=== PATIENT | female | born 1950 | race Caucasian/White ===

== ENCOUNTER → 2019-06-12 | Outpatient (CLI) | payer MEDICARE, SELFPAY ==
[2019-06-12 10:53] VITALS: BMI 25.7
--- NOTE | 2019-06-12 11:02 | RAD_ITS ---
STUDY: X-RAY - RIGHT KNEE REASON FOR EXAM: Female, 69 years old. Pain TECHNIQUE: 4 view(s) of the knee. COMPARISON: None. FINDINGS: Normal visualized distal femur. Normal visualized proximal tibia and fibula. Normal proximal tibiofibular articulation. There is severe degenerative arthrosis of the medial femorotibial compartment with severe joint space narrowing. There is moderate degenerative arthrosis of the lateral femorotibial compartment with moderate joint space narrowing. There is severe degenerative arthrosis of the patellofemoral articulation. Patellar osteophytes. The soft tissue structures are unremarkable. RAD/Knee 4 or More Views IMPRESSION: Significant tricompartmental osteoarthritis. Electronically Signed: Hernán Smith MD at 21:46 EDT Tel , Service support ,
== END | disposition home or self-care (01) ==
LOC: HPRAD 10:59
PROVIDERS: Family Provider Internal Medicine; PCP Internal Medicine; Referring Provider Orthopaedic Surgery; Visit Provider Orthopaedic Surgery
DX: M25.561 Pain in right knee (principal)
CPT/HCPCS: 73564

== ENCOUNTER 2020-09-16 14:00 | Outpatient (RCR) | payer MEDICARE, SELFPAY ==
[2020-08-19 07:56] VITALS: BMI 25.7
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
--- NOTE | 2020-09-16 14:51 | HP.PTDCSUM_ITS ---
It has been my pleasure to treat BIA SPRAGUE referred by Dr. Dirk Adams DO, with the diagnosis of OA of right hip and knee, Lumbar DDD for a total of 9 visit(s). Discharge Date: Please see the following information for a summary of their discharge status. Subjective: Water and Land both helpful. Does feel comfortable and confidence with the exercises. 80% back to normal- wants to be able to sampler pickup the right leg more easily. She has not had the sharp pain for 4 days! R groin Pain Intensity (Out of 10): 2 R knee Pain Intensity (Out of 10): 0 % Improvement: 80 Objective/Function: Posture: FH, RS- can correct but does not maintain. Gait: decreased stance on the right LE- poor heel/toe pattern on right with mild hip drop. HR/TR: able with discomfort with both. SLS: 30 sec without LOB but does report discomfort. Stairs: asc/desc 8 recip with 1 HR Palpation: not tender to touch. ROM: Lumbar: WFL in all planes, Hip: flexion: 110 degrees, abd: 50 degrees, IR:neutral, Er: 40 degrees, extn: 15 degrees- all with discomfort at end range. Knee: 10-110 degrees, Ankle: WFL. Sensation: WNL. Strength: Core: fair, hip: 4+/5, Knee: 5/5 Ankle: 5/5. Flex: HS: no restricion noted Gastroc: mild. Special Test: Scour: positive, COLLETTE: positive Goal 1:: Patient will be I with HEP and progression Goal Progress: Goal Met Goal 2:: Patient will ambulate >300 feet with a normalized gait pattern Goal Progress: Progressing Goal 3:: Patient will asc/desc 8 recip with 1 HR and normalized pattern Goal Progress: Goal Met Goal 4:: Patient will report no pain for 1 week in her groin Goal Progress: Progressing Plan: Discharge to Indep Home Exercise Program If there are questions or concerns regarding this patient's physical therapy, please feel free to call me at [phone]. Thank you for the referral of this patient. Sincerely, Danielle Vo DPT
== END 2020-09-16 19:00 | disposition home or self-care (01) ==
LOC: PT 14:00
PROVIDERS: PCP Internal Medicine; Referring Provider Orthopaedic Surgery; Visit Provider Orthopaedic Surgery
DX: M16.11 Unilateral primary osteoarthritis, right hip (principal); M17.11 Unilateral primary osteoarthritis, right knee; M51.36 Other intervertebral disc degeneration, lumbar region
CPT/HCPCS: 97110; 97113; 97140; 97162; 97164

== ENCOUNTER 2021-01-09 13:28 | Outpatient (RCR) | payer MEDICARE, SELFPAY ==
[2020-08-19 07:56] VITALS: BMI 25.7
[2021-01-09] MEDS: COVID-19 VACC, MRNA(PFIZER)/PF 30 MCG/0.3 ML SYRINGE IM (18:19)
[2021-01-30] MEDS: COVID-19 VACC, MRNA(PFIZER)/PF 30 MCG/0.3 ML SYRINGE IM (17:55)
== END 2021-01-09 23:59 ==
LOC: IMMUN 13:28
PROVIDERS: PCP Internal Medicine; Visit Provider Family Medicine
DX: Z23 Encounter for immunization (principal)
CPT/HCPCS: 0001A; 0002A; 91300

== ENCOUNTER → 2021-04-09 06:34 | Outpatient (CLI) | payer MEDICARE, SELFPAY ==
[2020-08-19 07:56] VITALS: BMI 25.7
--- NOTE | 2021-04-09 06:36 | CT_ITS ---
STUDY: CT SCAN LOWER EXTREMITY RIGHT.[facility] protocol. REASON FOR EXAM: Female, 71 years old. TKA RADIATION DOSAGE (If Supplied By Facility): CTDIvol = ( 19.41 ) mGy, DLP = ( 988.26 ) mGycm. Individualized dose optimization techniques were used for this CT.? TECHNIQUE: Multiple axial tomographic images of the right hip, right knee and right ankle joints were obtained. Coronal and sagittal reconstruction was obtained as well. COMPARISON: None. FINDINGS: Moderate degree of the osteoarthritis of the right hip joint with posterior acetabular spur. There is also evidence of degenerative spur involving the posterior aspect of the femoral head. Smaller spur is seen along the anterior aspect of the femoral head. There is a marked degree of joint space narrowing with degenerative spur formation involving the medial compartment of the knee joint. Moderate degree of joint space narrowing of the lateral compartment of the knee joint with degenerative spur formation of the distal femur and proximal tibia. There is a marked degree of osteoarthritis of the patellofemoral joint with large degenerative spur formation of the superior aspect of the patella as well as the anterior aspect of the distal femoral condyle. Small joint effusion. 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 No significant abnormality is seen at the level of the ankle joint. CT/Extremity Lower without Contra IMPRESSION: Degenerative changes of the hip joint and knee joint as described. Electronically Signed: Chan Blue MD at 9:01 EDT , Service support ,
== END ==
PROVIDERS: PCP Internal Medicine; Referring Provider Orthopaedic Surgery; Visit Provider Orthopaedic Surgery
DX: M17.11 Unilateral primary osteoarthritis, right knee (principal)
CPT/HCPCS: 73700

== ENCOUNTER 2021-04-22 06:47 | Day surgery (SDC) | payer MEDICARE, SELFPAY ==
[2020-08-19 07:56] VITALS: BMI 25.7
[2021-04-14 09:38] LABS: Prothrombin Time (Protime)PT. 12.2 SECONDS (11.7-14.9)
[2021-04-14 09:39] LABS: Partial Thromboplast Time 27.9 Seconds (24.1-36.2)
[2021-04-14 10:12] LABS: Thyroid Stim Hormone (TSH) 8.38 uIU/mL (0.358-3.74)
[2021-04-15 07:16] LABS: Fructosamine 267 umol/L (0-285)
[2021-04-22] VITALS (8 sets, daily range): BP systolic 104–149; BP diastolic 65–92; PULSE 60–95; RESP 14–16; TEMP 36.2–37.1; O2SAT 99–100; BMI 26.9
--- NOTE | 2021-04-22 07:07 | HP.PCM_ITS ---
History and Physical Date of Admission: 04/22/21 Date of Service: 03/14/21 MR#:[id number]:[id number]: BIA SPRAGUE #:[id number]:[id number] Provider:Dr. Dirk Adams DOAge/Sex: 71/F Location:[facility]:Signed Intake Intake Visit Reasons: right knee pain, Right hip Allergies triamcinolone acetonide [From Kenalog] Allergy (Verified 03/14/21 09:29) Hives hydrocodone Adverse Reaction (Verified 03/14/21 09:29) Vomiting lansoprazole [From Prevacid] Adverse Reaction (Verified 03/14/21 09:29) Nausea/Vom/Diarrhea oxycodone HCl [From Percocet] Adverse Reaction (Verified 03/14/21 09:29) Nausea/Vom/Diarrhea Medications cholecalciferol (vitamin D3) 2,000 unit PO DAILY 06/19/14 [History Confirmed 03/14/21] loratadine 10 mg PO DAILY 06/19/14 [History Confirmed 03/14/21] multivitamin with folic acid 1 tab PO DAILY 06/19/14 [History Confirmed 03/14/21] triamterene-hydrochlorothiazid 1 tab PO DAILY 06/19/14 [History Confirmed 03/14/21] calcium carbonate 600 mg PO DAILY 03/30/17 [History Confirmed 03/14/21] omeprazole 20 mg capsule,delayed release 20 mg PO cap 03/13/20 [History Confirmed 03/14/21] amoxicillin 500 mg capsule 2,000 mg PO ONCE #4 cap 03/05/21 [Rx Confirmed 03/14/21] levothyroxine 125 mcg tablet 88 mcg PO DAILY tab 03/14/21 [History Confirmed 03/14/21] [facility] Medical History (Updated 03/14/21 @ 09:45 by Ariane Briceño) Chondromalacia patellae, right knee History of reactive airway disease Surgical History (Updated 03/14/21 @ 09:27 by Lyudmila Rg) H/O elbow surgery History of carpal tunnel surgery Social History (Updated 08/19/20 @ 10:[address] Dirk Adams DO) Smoking Status: Former smoker HPI Right hip Details: Parts of this documentation were recorded by a scribe, this documentation accurately reflects the service provided and the decisions made by me, Dr. Dirk Adams, 03/14/21 0804. BIA SPRAGUE is a 71 year old F here today for primary complaint of Rt. knee pain. Patient states that in the past she did not want to have a knee replacement as suggested d/t the Covid pandemic but would like to discuss this option today. Patient states that she has a general pain that is now only in the knee. She still feels unsteady with this knee. She has had a left total knee replacement and has done well with that in the past she has had an open right surgery to her knee for cartilage issues. Ortho Exam General General: Yes no acute distress Neurologic: Yes alert Psychologic: Yes reasonable and appropriate Right Knee Skin/Wound: No erythema, No ecchymosis and No swelling Homans Sign: No Knee ROM: No ROM-Extension -20 to 0 and No ROM-Flexion 0-140 Examination: Yes Med jt line tenderness and Yes Lat jt line tenderness Stability: NML: Anterior Drawer, NML: Posterior Drawer, NML: Valgus 0 and NML: Valgus 30 Apprehension with Lateral Translation: No Patella Grind: Yes KNEE: Palpable pedal pulses intact sensation light touch There is a curvilinear midline incision from previous surgery Supplemental Info 03/14/2021 x-ray right knee: Severely advanced tricompartmental arthrosis with varus deformity Coding Level of Care Code Off vis,est,level 3 Diagnoses History of knee surgery Z98.890 Assessment and Plan Assessment and Plan (1) History of knee surgery: Plan - Dr. Dirk Adams, DO: Obtained X-rays of patient's right knee. Personally reviewed X-rays. See chart for further details. Explained patient is completely bone on bone with her right knee. Reviewed x- rays of her left knee after her previous total knee replacement. Discussed and educated patient on the IOVERA treatment. Explained this would be beneficial for patient since she would like to avoid narcotics. Discussed patient taking tramadol post operatively. Discussed patient is a perfect surgical candidate for a total knee replacement. Educated and demonstrated on a knee model. Explained to patient, would use the same existing incision on her right knee. Patient voiced she prefers stitches vs nasreen. Risks, benefits and alternatives of surgery reviewed including but not limited to bleeding, infection, nerve, artery and/or tissue damage, fracture, VTE, mech anical feel of the knee, continued pain, stiffness and expected post-operative course. Post operatively, patient will perform physical therapy same day. Patient can stay overnight if needed. Patient may take Tylenol up until surgery for pain relief. Patient needs to d/c NSAIDs one week before surgery and two weeks post-op. Patient will be on a blood thinner for two weeks post-op. Patient will start with a walker post-op and may transition into /cane/crutches based on evaluation. All questions answered. Patient in agreement of plan. Follow up with IOVERA treatment or sooner if pain, swelling, numbness or associated symptoms, or concerns develop. She will have her dental cleaning this month and we will schedule surgery for April 22, 2021 03/14/21 1010<Electronically signed by Dirk Adams DO>Date Dirk Adams DO Cosigner Signature:Date (if applicable) CC: ~I have re-examined the patient. There are no clinical changes since date of exam
[2021-04-22] MEDS: Celecoxib 200 MG Capsule 400 MG PO (07:45)
[2021-04-22] MEDS: Lactated Ringers 1,000 ML 100 ML IV (07:47)
[2021-04-22] MEDS: Acetaminophen 500 MG Tablet 1000 MG PO (07:49)
[2021-04-22] MEDS: Scopolamine 1mg/72hr Patch 1 PATCH TD (07:49)
[2021-04-22] MEDS: Gabapentin 600 MG Tablet PO (07:49)
[2021-04-22 08:10] LABS: Bedside Glucose 92 mg/dL (70-110)
[2021-04-22] MEDS: Cefazolin 2 GM in 0.9% Normal Saline 100 ML IV (10:27)
[2021-04-22] MEDS: dexAMETHasone 10 MG/ML Vial IV (10:30)
--- NOTE | 2021-04-22 10:30 | KNEE_PTH ---
PATIENT: BIA SPRAGUE LOC: [facility] [place] U#:[id number] AGE/SX: 71/F ROOM: RE04/22/[address]: Dr. Dirk Adams DO : 1950 BED: DIS: 04/22/2021 SPEC #: [id number] RECD: 04/22/21 14:47 STATUS: DYLAN REQ #: [id number] SALVADOR: 04/22/21 10:[address]: Dirk Adams DEPT: SURGICAL PATHOLOGY RECD BY: Jennifer Phan ENTERED: 04/23/21 10:34 SP TYPE: TOTAL KNEE OTHR DR: Dr. Irena Juarez MD Tissues: Knee, NOS Procedures: Decalcification bone/plaque Surgery Specimen Level IV HEADER OPERATION: ERAS, total knee replacement robotic arm assist PRE-OP DIAGNOSIS: History of knee surgery Z98.890 TISSUE SUBMITTED: Bone and tissue right knee MICROSCOPIC DIAGNOSIS Bone and tissue, right knee, total knee replacement/resection: Pieces of bone with degenerative osteoarthritic changes. BERKLEY:ivan 04/28/2021 MICROSCOPIC DESCRIPTION Slides are reviewed. GROSS DESCRIPTION Received is one container designated bone and soft tissue right knee. The specimen consists of multiple fragments of panchal-yellow bone measuring in aggregate 10 x 9 x 3 cm. No soft tissue is identified. A number of bony fragments contain articular surfaces consistent with tibial plateau and femoral condyle and displaying prominent osteophyte formation, eburnation and bone erosion. Heliarc Welder sections are submitted in two cassettes after decalcification. / BERKLEY:ivan 04/23/21 TC:5 CPT: 27078, 67431
[2021-04-22] MEDS: Lactated Ringers 1,000 ML 125 ML IV (11:31)
[2021-04-22] MEDS: Bupivacaine Mpf 0.5% 30 ML VIAL (12:08)
[2021-04-22] MEDS: Betamethasone/Betamethasone 30 MG/5 ML Vial (12:08)
[2021-04-22] MEDS: Epinephrine (1 mg/ml) 1 MG/ML VIAL (12:08)
[2021-04-22] MEDS: Cefazolin 1 GM/50 ML BAG IV (12:34)
--- NOTE | 2021-04-22 12:38 | PCM.OPRPT ---
Report of Operation Description of Surgical Findings:: Preoperative diagnosis: Right knee DJD Postoperative diagnosis: Same Procedure: Right total knee arthroplasty CT guided Robotic Assisted Implant: Havelock triathlon press fit femoral component size3, press-fit tibial baseplate size 4, press fit asymmetric patella size 35, polyethylene X3 size 9 CS Anesthesia: Spinal with adductor canal block Tourniquet time: 34 minutes at 300 mmHg Complications: None Condition: Stable to PACU Estimated blood loss: 125 cc Indication for procedure: This is a 71-year-old female with long standing degenerative joint disease, varus deformity and flexion contracture of the knee who has failed conservative treatment and wished to proceed with elective total knee arthroplasty. Risk benefits and alternatives were reviewed including; risk of bleeding, infection, nerve artery and tissue damage, continued pain, postoperative stiffness, venous thromboembolism, need for postoperative rehabilitation, mechanical feel to the knee, and expected postoperative course. The operative CT and templating was performed with component sizing Procedure: The patient was met in the preoperative holding area. The operative extremity was identified by both patient and physician and was marked. Patient was met by anesthesia. An adductor canal block was placed by anesthesia postoperatively the patient was brought back to the operating room on a wheeled cart and transferred to the operating table in the supine position. Anesthesia was started. A well-padded tourniquet was placed on the operative extremity. The patient was prepped and draped in the usual sterile fashion. A timeout was called to ensure the proper patient procedure and extremity were being contemplated. An Esmarch was used to exsanguinate the extremity. The tourniquet was inflated. A 10 blade scalpel was used to make a midline incision down through the skin and subcutaneous tissue. Skin retractors placed. Bovie was used to perform meticulous hemostasis. full-thickness flaps were elevated medial and lateral along the joint capsule. A deep blade scalpel was used to perform a medial parapatellar arthrotomy. The knee was brought to full extension. A Bovie was used to release the soft tissues off the most proximal aspect of the medial tibial plateau, a three-quarter inch curved osteotome was also used for this process. The infrapatellar fat pad was excised. The superior fat pad was excised partially anteriorolateraly and portion the anterioromedial pad was elevated from the femur. At this point our intra-articular femoral array was placed of a 45 degree angle proximal and posterior to the medial epicondyle. Our tibial array was placed greater than 1 hands breath below the incision at a 20 degree angle stab incisions were used for this case were attached and checked with the robotic software. Tourniquet was let down. At this point registration wang were taken throughout the knee as well as checkpoints placed in the femur and tibia once the knee was registered then tensioned the medial and lateral ligaments in extension and 90 degrees of flexion. We then used these numbers to adjust our components within parameters to balance the knee in both flexion and extension once this was done on our monitor we then proceeded with using the robotic arm to make our tibial plateau cut and anterior posterior and chamfer cuts and distal on the femur we then trialed and achieved the desired plan with a well-balanced knee. Lug holes were drilled in the femur the tibia preparation was completed with a fin punch and the patella was prepared by first using a caliper to ensure sufficient bone stock and a patellar reamer to remove the desired amount of bone locals were drilled for an asymmetric poly-. We then brought the knee through range of motion with excellent patellar tracking. We thoroughly irrigated the knee with a trial components were removed a posterior capsular injection with her standard cocktail was performed the aqua Mantis was also used to aid in hemostasis. Betadine rinse was allowed to sit and washed out components were press-fit into place. Aricept rinse was then used followed by several more rate liters of irrigation after it was allowed to sit. Joint capsule was closed with #1 Ethibond [id number] followed by Vicryl in the subcutaneous tissues staple in the skin arrays and checkpoints were removed prior to closure all counts were correct stab incisions were closed with a stable standard dressing in the form of Mepilex for the main incision Xeroform 4 x 4 and Tegaderm over pin site holes. Thigh-high DEREEJ hose applied over top of dressing. Patient tolerated the procedure well and was directed to PACU in stable condition no intraoperative complications
--- NOTE | 2021-04-22 12:39 | DCINST_ITS ---
Discharge Instructions Diet Discharge Diet: No restrictions Activity Weight Bearing Status: Weight bearing as tolerated Keep extremity elevated above heart level: Operative Extremity Dressing / Incision Call your doctor if you observe: Shortness of breath and Chest pain Change Dressing in: 3 days Remove Dressing in: 3 days Additional Dressing/Incision Instructions:: Ice and elevate one week while not ambulating. Ambulation is encouraged. Weightbearing as tolerated. Use assistive devise for stability. Encourage FULL knee extension and flexion 1 time EVERY time you get up and down and MULTIPLE times per day. No showering 72 hours after surgery. Begin showering postop day #3. Remove the dressing prior to shower and gently wash with warm water and antibacterial soap then pat dry and place abdominal pad (or plain gauze) and DEREJE hose over top. This is to be done daily. Do not submerge for 3 weeks. If not showering daily after the initial 72 hours then you must clean incision and change dressing daily. Do not allow animals near the incision area. Keep clean. Follow anticoagulation recommendations as prescribed. Do not take any NSAIDs while on blood thinner. Do not take any additional narcotic pain medication other than what was prescribed on your surgery day without discussing with physician. Narcotic medi cation can be addictive. Do not drink alcohol while taking narcotics. Start physical therapy. If you are not currently scheduled for physical therapy or you are unsure of appointment time please call office [facility] to arrange. Call Dr. Adams with any concerns. Follow Up Care Please Follow Up With: Dirk Adams DO When: 2 weeks Test Results: Test results from this visit will be discussed in further detail at your follow-up appointment, if applicable. Discharge Plan Admission Attending Provider: Dirk Adams Primary Care Provider: Irena Juarez Discharge Orders/Prescriptions Prescriptions: New ondansetron HCl [Zofran] 4 MG tablet 4 mg PO Q6H PRN PRN (Reason: Nausea) 5 Days Qty: 15 RF: 0 cephalexin [cephalexin] 500 MG capsule 1,000 mg PO Q8 Qty: 4 RF: 0 Eliquis 2.5 MG tablet 2.5 mg PO BID Qty: 30 RF: 0 codeine sulfate 30 mg tablet 30 mg PO Q4H 7 Days Qty: 42 RF: 0 acetaminophen [acetaminophen] 500 MG tablet 1,000 mg PO Q6H PRN Qty: 100 RF: 0 No Action omeprazole 20 mg capsule,delayed release(DR/EC) 20 mg PO DAILY RF: 0 triamterene-hydrochlorothiazid 1 EACH tablet 1 tab PO DAILY RF: 0 loratadine 10 MG tablet 10 mg PO DAILY RF: 0 cholecalciferol (vitamin D3) 2,000 UNIT tablet 2,000 unit PO DAILY RF: 0 multivitamin with folic acid 1 TABLET tablet 1 tab PO DAILY RF: 0 levothyroxine 125 mcg tablet 88 mcg PO DAILY RF: 0 calcium carbonate 600 MG tablet 600 mg PO DAILY RF: 0 Elderberry Syrup 10 ml PO/SL DAILY RF: 0 Referrals / Follow Up: Irena Juarez MD [Primary Care Provider] - Disposition Discharge Orders: Discharge Patient (Routine); Ordered 04/22/21 Ordered By: Dr. Dirk Adams
--- NOTE | 2021-04-22 13:32 | RAD_ITS ---
STUDY: X-RAY - RIGHT KNEE REASON FOR EXAM: Postop right total knee arthroplasty. TECHNIQUE: 2 view(s) of the knee. COMPARISON: Radiographs 03/14/2021. FINDINGS: There is a right total knee arthroplasty without evidence of complication. There is postoperative gas in the soft tissues. RAD/Knee 1 or 2 Views IMPRESSION: Uncomplicated right total knee arthroplasty. Electronically Signed: Dale Martinez MD at 14:09 EDT Tel , Service support ,
[2021-04-22] MEDS: Acetaminophen 500 MG Tablet PO (16:01)
== END 2021-04-22 17:12 ==
LOC: SDC 06:47 → AC 06:48
PROVIDERS: Anesthesiology; PCP Internal Medicine; Referring Provider Orthopaedic Surgery; Visit Provider Orthopaedic Surgery
PROC: 0SRC0JZ Replacement of Right Knee Joint with Synthetic Substitute, Open Approach (ICD-10-PCS; CPT 27447; principal; 2021-04-22 10:00)
DX: M17.11 Unilateral primary osteoarthritis, right knee (principal); M19.90 Unspecified osteoarthritis, unspecified site; K21.9 Gastro-esophageal reflux disease without esophagitis; I10 Essential (primary) hypertension; E07.9 Disorder of thyroid, unspecified; Z79.899 Other long term (current) drug therapy; Z87.891 Personal history of nicotine dependence
CPT/HCPCS: 01402; 27447; 64447; S2900; 36415; 73560; 82962; 82985; 83735; 84443; 85610; 85730; 86850; 86900; 86901; 87081; 88305; 88311; 97162; C1776; J7120; J0702; J2405

== ENCOUNTER 2021-06-04 12:00 | Outpatient (RCR) | payer MEDICARE, SELFPAY ==
[2020-08-19 07:56] VITALS: BMI 25.7
[2021-04-22 07:28] VITALS: BMI 26.9
--- NOTE | 2021-04-24 10:59 | HP.PTEVAL_ITS ---
Patient's Visit Information BIA SPRAGUE is a 71 year old F referred to Physical Therapy by Dr. 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 Date of Evaluation: 04/24/21 Physical Therapist: Koko Che, PT, ATC - Visit Plan Frequency: 3x /Week Duration: 6 Weeks Plan: R knee PROM/Mobs, stretching and strengthening, balance and proprio, core stab ex's, nustep, and HEP - Subjective DOS: 04/22/21. Pt reports she was doing ok until today. Pt reports she is in a lot of pain and the swelling is worse today. Pt notes she had a L TKA six years ago. Pt reports she had surgery on Wednesday morning and has been at home since. Pt notes she was given a HEP to perform but notes she is too sore today to perform the exercises. Pt reports she only has numbness surrounding her incision. Pt notes sleep difficulty without the use of pain meds. Pt reports she is able to negotiate stairs at this time one step at a time. Pt reports she is taking pain meds a couple times a day. Pt reports she is icing her knee which takes care of most of the pain. 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 2/10 pain at rest, 9/10 pain at worst (sitting down after standing) - Pain R knee Pain Intensity (Out of 10): 2 Pain Intensity Range: 9 - Objective Neuro: B LE sensation is WNL to light touch. B achilles reflex= 2/3. Girth: At patella: L knee 38, R knee 44 cm. MMT: R knee ext= o, flex 4.7; L knee flex= 10.6, ext 16.7 #F. ROM: L knee 0-115, R knee 0-10-70. Tu.43 - Goals Goal 1:: Decrease R knee pain x 50% to aid with sleep Goal Time Frame: 4-6 Weeks Goal 2:: Increase R knee ROM x 40 degrees toa id with restoring a more normalized gait pattern Goal Time Frame: 4-6 Weeks Goal 3:: Increase R knee strength x 1 grade to aid with gardening requirements Goal Time Frame: 4-6 Weeks Goal 4:: I with HEP Goal Time Frame: 4-6 Weeks - Rehabilitation Potential Physical Therapy Diagnosis: Pt has R knee swelling, weakness, and limited ROM secondary to R TKA Rehabilitation Potential: Good - Anticipated Interventions Patient/Client Instruction: Educate patient on: Condition, Plan of Care For the Purpose of:: To improve self management Therapeutic Exercise to Include: Strength training, Endurance training, Balance training, Flexibilty training, Gait and locomotor training, Passive ROM, Active ROM, Dynamic Lumbar Stabilization For the Purpose of:: To decrease pain, To increase ROM, To improve muscle performance and motor function Cryotherapy (ice pack, ice massage): Yes For the Purpose of:: To decrease pain Thank you for the opportunity to evaluate your patient. For Medicare and Medicare HMO plans, please review the plan of care and approve it. It will need to be FAXED BACK to us at [phone] for Medicare purposes. For Medicare only, by signing this I certify the plan of care. Please let me know if there are questions or concerns regarding this plan of care. Physician Signature: Date:
--- NOTE | 2021-06-09 16:34 | HP.PT.NRP ---
BIA SPRAGUE was seen in my office for initial evaluation on 04/24/21. The following Plan of Care was established for this patient: Initial Frequency: 3x /Week Initial Duration: 6 Weeks Patient/Client Instruction: Educate patient on: Condition, Plan of Care For the Purpose of:: To improve self management Therapeutic Exercise to Include: Strength training, Endurance training, Balance training, Flexibilty training, Gait and locomotor training, Passive ROM, Active ROM, Dynamic Lumbar Stabilization For the Purpose of:: To decrease pain, To increase ROM, To improve muscle performance and motor function Cryotherapy (ice pack, ice massage): Yes For the Purpose of:: To decrease pain This patient was last seen in our office . Pertinent comments regarding their Physical therapy will appear below: Pt returned to [facility] on the date of 06/04/2021 to report that she did not need any further PT. Pt was discharged at that time. At this point I will be discontinuing this patient from physical therapy. I would be happy to see this patient again in the future if found appropriate by the physician. Thank you! Koko Che, PT, ATC Balance/Gait/Functional tests - Balance/Special Test Scores Lower Extremity Functional Score: 67
== END 2021-06-04 19:00 | disposition home or self-care (01) ==
LOC: PT 12:00
PROVIDERS: PCP Internal Medicine; Referring Provider Orthopaedic Surgery; Visit Provider Orthopaedic Surgery
DX: Z47.1 Aftercare following joint replacement surgery (principal); Z96.651 Presence of right artificial knee joint
CPT/HCPCS: 97110; 97140; 97161

== ENCOUNTER 2023-03-25 10:00 | Outpatient (RCR) | payer MEDICARE, SELFPAY ==
--- NOTE | 2023-01-21 12:19 | HP.PTEVAL_ITS ---
Patient's Visit Information BIA SPRAGUE is a 73 year old F referred to Physical Therapy by Dr. Lou Haddad DO with a diagnosis of Right RTC Repair 12/29/22. Date of Evaluation: 01/21/23 Physical Therapist: Danielle Vo DPT - Visit Plan Frequency: 2x /Week Duration: 4 Weeks Plan: RTC repair 02/09/23- PROM until February 09. HEP Given IE: Scapular retractions, shoulder rolls, pendulums, table walk aways, bicep AROM - Subjective Dec 29 Dr. Haddad did a right RTC repair-partially tore it 25 years ago and she finished ripping it through with wear and tear. She has been wearing a sling since surgery and will wear it for a total of 6 weeks. 3x a day she gets out of it and does pendulums. Right hand dominate. Fully I prior to surgery. She has help at home. Pain at its worst: 3/10 Agg: when she does something dumb. Eases: getting it out of the sling. She is not taking pain medication. Best: 0/10 Pain is located in anterior shoulder and down the triceps. Describes the pain as sharp then it dulls out but does not last long. She has always had N/T in her fingers- no changes. They do swell more than normal now. No blurred vision, dizziness, [place] or neck pain. Sleep: chair- keeps trying the couch. PMHx/Meds: no changes since saw ortho in April. - Objective Posture: FH, RS- sling on the right UE- reports compliance. Palpation: tender along anterior shoulder and bicipital groove. ROM: AROM: Cervical: WNL Elbow: lacks 10 degrees of full extension, Wrist/Hand: WFL, PROM: Shoulder: guarded- Flexion: 90 degrees, Abd: 40 degrees, IR: to belly ER: 10 degrees- did not push into pain. Strength: not tested - Balance/Special Test Scores Quick DASH Score: 40.9075 - Goals Goal 1:: Patient will be I with HEP and progression Goal Time Frame: 8-12 Weeks Goal 2:: Patient will demo full AROM as per protocol allows Goal Time Frame: 8-12 Weeks Goal 3:: Patient will maintain proper posture t.o tx session to demo increased scap s/s Goal Time Frame: 8-12 Weeks Goal 4:: Patient will report 80% improvement Goal Time Frame: 8-12 Weeks - Rehabilitation Potential Physical Therapy Diagnosis: Patient presents with hypomobility- she has decreased UE ROM and scapular strength/stabilization and muscular endurance s/p RTC repair. Rehabilitation Potential: Good - Anticipated Interventions Patient/Client Instruction: Educate patient on: Benefits of Fitness Program Therapeutic Exercise to Include: Strength training, Endurance training, Coordination, Agility training, Body mechanics, Postural training, Flexibilty training, Neuromotor development, Passive ROM, Active ROM, Scapular Strength/Stabilization For the Purpose of:: To improve muscle performance and motor function Manual Therapy Techniques to Include: Passive ROM, Soft tissue mobilization TENS: Yes Cryotherapy (ice pack, ice massage): Yes Thermo therapy (hot pack): Yes Ultrasound (thermal/non thermal): No Thank you for the opportunity to evaluate your patient. For Medicare and Medicare HMO plans, please review the plan of care and approve it. It will need to be FAXED BACK to us at [phone] for Medicare purposes. For Medicare only, by signing this I certify the plan of care. Please let me know if there are questions or concerns regarding this plan of c are. Physician Signature: Date:
--- NOTE | 2023-02-18 11:52 | HP.PTREVAL ---
Dr. Lou Haddad, DO, It has been my pleasure to treat BIA SPRAGUE over the last 9 visits for Right RTC Repair 12/29/22. Please see the progress note below for an update on the physical therapy plan of care! Subjective: Patient reports that she saw the PA and is doing great. Sleep is back to normal. Just no strength in the shoulder- no using the sling anymore. Is not driving due to the gear shift. Exercise is going well at home. Objective/Function: Posture: no sling Palpation: tender along anterior shoulder and bicipital groove. ROM: AROM: Cervical: WNL Elbow: WFL Wrist/Hand: WFL, PROM: Shoulder: 165 degrees, Abd: 150 degrees, IR: to belly ER: 60 degrees Strength: Isometric at neutral 4+/5 Plan Plan: 02/18/23: Continue 2x a week for 4 weeks with progression through protocol. IE:RTC repair 02/09/23- PROM until February 09 Balance/Gait/Functional tests - Balance/Special Test Scores Quick DASH Score: 56.8175 Goals Goal 1:: Patient will be I with HEP and progression Goal Time Frame: 8-12 Weeks Goal Progress: Progressing Goal 2:: Patient will demo full AROM as per protocol allows Goal Time Frame: 8-12 Weeks Goal Progress: Progressing Goal 3:: Patient will maintain proper posture t.o tx session to demo increased scap s/s Goal Time Frame: 8-12 Weeks Goal Progress: Progressing Goal 4:: Patient will report 80% improvement Goal Time Frame: 8-12 Weeks Goal Progress: Progressing Anticipated Interventions Patient/Client Instruction: Educate patient on: Benefits of Fitness Program Therapeutic Exercise to Include: Strength training, Endurance training, Coordination, Agility training, Body mechanics, Postural training, Flexibilty training, Neuromotor development, Passive ROM, Active ROM, Scapular Strength/Stabilization For the Purpose of:: To improve muscle performance and motor function Manual Therapy Techniques to Include: Passive ROM, Soft tissue mobilization TENS: Yes Cryotherapy (ice pack, ice massage): Yes Thermo therapy (hot pack): Yes Ultrasound (thermal/non thermal): No Please do not hesitate to contact me at [phone] by phone or if you have questions or concerns regarding this new plan of care! Sincerely, Danielle Vo DPT
--- NOTE | 2023-03-18 09:28 | HP.PTREVAL_ITS ---
Dr. Lou Haddad, DO, It has been my pleasure to treat BIA SPRAGUE over the last 17 visits for Right RTC Repair 12/29/22. Please see the progress note below for an update on the physical therapy plan of care! Subjective: Pt. reports doing well. She is to follow up with physician later this date. Pt. reports no pain. She is going to [place] in 2 weeks. Objective/Function: ROM: PROM: full ROM without increase in symptoms. AROM: flexion 170deg aberrant motion, abd 165deg aberrant motion, functional IR L3, fdunctional ER C5. MMT: R elbow 5/5 throughout; shoulder: flexion 4-/5, abd 4- /5; ER 4/5, IR 5/5, ext 5/5. Pt. has good ROM of her R shoulder, but as expected she is still very weak, especially with over head movements. She would benefit from PT to work on phase III strengthening once physician allows. Plan Plan: Pt. to follow up with physician today to determine readiness for phase III. Pt. is also going to [place] in 2 weeks. Plan to see her during this time then progress to HEP that she can complete while on her trip. Balance/Gait/Functional tests - Balance/Special Test Scores Quick DASH Score: 27.2725 Goals Goal 1:: Patient will be I with HEP and progression Goal Time Frame: 8-12 Weeks Goal Progress: Progressing Goal 2:: Patient will demo full AROM as per protocol allows Goal Time Frame: 8-12 Weeks Goal Progress: Progressing Goal 3:: Patient will maintain proper posture t.o tx session to demo increased scap s/s Goal Time Frame: 8-12 Weeks Goal Progress: Progressing Goal 4:: Patient will report 80% improvement Goal Time Frame: 8-12 Weeks Goal Progress: Progressing Anticipated Interventions Patient/Client Instruction: Educate patient on: Benefits of Fitness Program Therapeutic Exercise to Include: Strength training, Endurance training, Coordination, Agility training, Body mechanics, Postural training, Flexibilty training, Neuromotor development, Passive ROM, Active ROM, Scapular Strength/Stabilization For the Purpose of:: To improve muscle performance and motor function Manual Therapy Techniques to Include: Passive ROM, Soft tissue mobilization TENS: Yes Cryotherapy (ice pack, ice massage): Yes Thermo therapy (hot pack): Yes Ultrasound (thermal/non thermal): No Please do not hesitate to contact me at [phone] by phone or if you have questions or concerns regarding this new plan of care! Sincerely, SAMANTHA ObrienT
--- NOTE | 2023-05-24 13:06 | HP.PT.NRP ---
Patient Information Patient Information: BIA SPRAGUE was seen in my office for initial evaluation on 01/21/23. The following Plan of Care was established for this patient: POC Established Initial Frequency: 2x /Week Initial Duration: 4 Weeks Anticipated Interventions Patient/Client Instruction: Educate patient on: Benefits of Fitness Program Therapeutic Exercise to Include: Strength training, Endurance training, Coordination, Agility training, Body mechanics, Postural training, Flexibilty training, Neuromotor development, Passive ROM, Active ROM and Scapular Strength/Stabilization For the Purpose of:: To improve muscle performance and motor function Manual Therapy Techniques to Include: Passive ROM and Soft tissue mobilization TENS: Yes Cryotherapy (ice pack, ice massage): Yes Thermo therapy (hot pack): Yes Ultrasound (thermal/non thermal): No Last Seen Last Seen: This patient was last seen in our office . Pertinent comments regarding their Physical therapy will appear below: Patient to continue HEP- d/c from PT- follow up with MD as needed. At this point I will be discontinuing this patient from physical therapy. I would be happy to see this patient again in the future if found appropriate by the physician. Thank you! Danielle Vo, SAMANTHAT Balance/Gait/Functional tests Balance/Special Test Scores Quick DASH Score: 27.1829
== END 2023-03-25 19:00 | disposition home or self-care (01) ==
LOC: PT 10:00
PROVIDERS: PCP Internal Medicine; Referring Provider Orthopaedic Surgery; Visit Provider Orthopaedic Surgery
DX: M75.121 Complete rotator cuff tear or rupture of right shoulder, not specified as traumatic (principal); G89.29 Other chronic pain; M25.819 Other specified joint disorders, unspecified shoulder; M75.51 Bursitis of right shoulder; Z98.890 Other specified postprocedural states
CPT/HCPCS: 97110; 97140; 97162; 97164

== ENCOUNTER 2024-03-13 09:30 | Outpatient (RCR) | payer MEDICARE, SELFPAY ==
--- NOTE | 2024-02-25 09:21 | HP.PTEVAL_ITS ---
Patient's Visit Information Visit Information Visit Information: BIA SPRAGUE is a 74 year old F referred to Physical Therapy by Dr. Dirk Adams DO with a diagnosis of Piriformis syndrome. Date of Evaluation: 02/22/24 Physical Therapist: Santi Hewitt DPT Visit Plan Frequency: 2x /Week Duration: 6 Weeks Plan: 1) Piriformis and IT band stretching, light progressing as tolerated. 2) US to piriformis on L side, inhibition rolling to same region. 3) glute medius strengthening as tolerated. If US not helping okay to progress on. Subjective Subjective: Pt. is here today for her initial evaluation with diagnosis of L piriformis strain. Pt. reports no mech of injury, but might have been after doing a lot of raking. She reports increased pain with getting up and down and with prolonged sitting. Walking is better. Pt. denies N/T in either LE. She does have pain that she reports that she has been trying some stretching, but has not seemed to help her pain much. Pt. does have some that extends down her leg to proximal posterior thigh. Pt. did have xrays showing some osteopenia and mild OA of L hip. 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 She thinks raking might have started all of her symptoms. Pain L gluteal region: Pain Intensity (Out of 10): 3 Pain Intensity Range: 0 and 9 Objective Objective: POSTURE: Slight fwrd posture. Slight anterior pelvic tilt. No larger lateral shift noted. PALPATION: No tenderness in lumbar spine. Pt. has tenderness along L piriformis muscle belly. Pt. reports pain down her leg, but not tender to palpation. NEURO: Pt. has normal sensation and normal DTR of BLEs. ROM: LUMBAR SPINE: flexion min loss NE, ext min loss NE, rotation min loss NE bilat, SB min loss NE. L hip: flexion 110deg NE, abd 45deg NE, ext 20deg NE, ER 45deg mild increase NW, IR 30deg NE. MMT: RLE: 5/5 throughout; LLE; ankle 5/5; knee: ext 5/5, flexion 5/5; hip: flexion 5/5, abd 4/5 increase NW, ext 4/5 mild increase NW. Core strenth poor+. GAIT: Pt. has fairly normal gait pattern. No large abnormalities. STAIRS: mild increase NW during R stance phase of gait. Special Tests L/S Slump test left side: Negative L/S Slump test right side: Negative L/S Left Straight Leg Raise: Negative L/S Right Straight Leg Raise: Negative L Hip Scour: Negative L Hip COLLETTE - Intraarticular Pathology: Negative L Hip FADDIR - Labrum: Negative L Hip Brenda - IT Band: Positive Comment: Pt. did have some IT band tightness, but no pain with testing. Balance/Special Test Scores Lower Extremity Functional Score: 36 Goals Goal 1:: LTG: Pt. to be I with HEP. Goal Time Frame: 4-6 Weeks Goal 2:: STG: Pt. to be able to get up from seated position without increase in L hip pain. Goal Time Frame: 2-4 Weeks Goal 3:: LTG: Pt. to have symmetrical strength of B hips. 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 Goal Time Frame: 4-6 Weeks Goal 5:: LTG: Pt have a negative obers test. Goal Time Frame: 2-4 Weeks Goal 6:: LTG: pt. to have symmetrical hip ROM indicating reduced tightness in L hip. Goal Time Frame: 4-6 Weeks Rehabilitation Potential Physical Therapy Diagnosis: Pt. has signs and symptoms consistent with L piriformis syndrome. Pt. has marked posterior hip pain, consistent with palpation of piriformis. Negative testing for lumbar spine as well. Pt. has tightness and symptoms with L hip ER. Pt. 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 Rehabilitation Potential: Excellent Anticipated Interventions Patient/Client Instruction: Educate patient on: Condition, Plan of Care, Risk Factors and Benefits of Fitness Program For the Purpose of:: To foster healthy habits, To improve decision making, To facilitate caregiver knowledge, To improve self management, To prevent re-injury and To improve ability to perform tasks related to life management Therapeutic Exercise to Include: Strength training, Power training, Body mechanics, Flexibilty training and Passive ROM For the Purpose of:: To decrease pain, To decrease swelling/inflammation, To increase ROM, To improve nutrient delivery to tissue, To increase oxygenation perfusion, To improve muscle performance and motor function, To improve ability to perform ADL's, To increase tolerance to activity/condition/position, To improve performance and independence with ADL's, To decrease soft tissue restriction and To increase flexibility/ROM Manual Therapy Techniques to Include: Mobilization and Soft tissue mobilization For the Purpose of:: To decrease pain, To increase ROM, To improve nutrient delivery to tissue, To increase oxygenation perfusion and To improve muscle performance and motor function Ultrasound (thermal/non thermal): Yes For the Purpose of:: To decrease pain, To increase ROM, To improve nutrient delivery to tissue, To increase oxygenation perfusion, To decrease soft tissue restriction and To increase flexibility/ROM Text: Thank you for the opportunity to evaluate your patient. For Medicare and Medicare HMO plans, please review the plan of care and approve it. It will need to be FAXED BACK to us at [phone] for Medicare purposes. For Medicare only, by signing this I certify the plan of care. Please let me know if there are questions or concerns regarding this plan of care. Physician Signature: Date:
--- NOTE | 2024-03-13 10:27 | HP.PTREVAL_ITS ---
Re-Evaluation Intro: Dr. Dirk Adams, DO, It has been my pleasure to treat BIA SPRAGUE over the last 6 visits for Piriformis syndrome. Please see the progress note below for an update on the physical therapy plan of care! Subjective Subjective: Pt. reports symptoms are no better, actually in some cases a little bit more pain. Pt. reports my hamstrings on the right side are very sore. It feels deep. Pt. reports not much change her buttock or LE pain. Objective Objective/Function: Pt. continues to have increased pain down her LLE mostly in posterior/lateral leg. Pt. describes pain at deep and unable to get to. Pt. did have increased pain with nerve glides previously done. Pt. reports not having much relief with PT. Due to her limited progress and in some cases a little bit worse, I am recommending that she return to physician for further evaluation. She seems to have nerve symptoms in her leg that is very irritable. All strethcing seems to irritate her symptoms. Possible further evaluation warranted . Plan Plan Plan: Return to physician for further testing. Balance/Gait/Functional tests Balance/Special Test Scores Lower Extremity Functional Score: 36 Goals Goals Goal 1:: LTG: Pt. to be I with HEP. Goal Time Frame: 4-6 Weeks Goal Progress: Progressing Goal 2:: STG: Pt. to be able to get up from seated position without increase in L hip pain. Goal Time Frame: 2-4 Weeks Goal Progress: Progressing Goal 3:: LTG: Pt. to have symmetrical strength of B hips. 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 Goal Time Frame: 4-6 Weeks Goal Progress: Progressing Goal 5:: LTG: Pt have a negative obers test. Goal Time Frame: 2-4 Weeks Goal Progress: Progressing Goal 6:: LTG: pt. to have symmetrical hip ROM indicating reduced tightness in L hip. Goal Time Frame: 4-6 Weeks Goal Progress: Progressing Anticipated Interventions Anticipated Interventions Patient/Client Instruction: Educate patient on: Condition, Plan of Care, Risk Factors and Benefits of Fitness Program For the Purpose of:: To foster healthy habits, To improve decision making, To facilitate caregiver knowledge, To improve self management, To prevent re-injury and To improve ability to perform tasks related to life management Therapeutic Exercise to Include: Strength training, Power training, Body mechanics, Flexibilty training and Passive ROM For the Purpose of:: To decrease pain, To decrease swelling/inflammation, To increase ROM, To improve nutrient delivery to tissue, To increase oxygenation perfusion, To improve muscle performance and motor function, To improve ability to perform ADL's, To increase tolerance to activity/condition/position, To improve performance and independence with ADL's, To decrease soft tissue restriction and To increase flexibility/ROM Manual Therapy Techniques to Include: Mobilization and Soft tissue mobilization For the Purpose of:: To decrease pain, To increase ROM, To improve nutrient delivery to tissue, To increase oxygenation perfusion and To improve muscle performance and motor function Ultrasound (thermal/non thermal): Yes For the Purpose of:: To decrease pain, To increase ROM, To improve nutrient delivery to tissue, To increase oxygenation perfusion, To decrease soft tissue restriction and To increase flexibility/ROM Re-Evaluation Ending Re-evaluation ending: Please do not hesitate to contact me at [phone] by phone or if you have questions or concerns regarding this new plan of care! Sincerely, Santi Hewitt DPT
== END 2024-03-13 19:00 | disposition home or self-care (01) ==
LOC: PT 09:30
PROVIDERS: PCP Internal Medicine; Referring Provider Orthopaedic Surgery; Visit Provider Orthopaedic Surgery
DX: S76.312D Strain of muscle, fascia and tendon of the posterior muscle group at thigh level, left thigh, subsequent encounter (principal)
CPT/HCPCS: 97035; 97110; 97140; 97161; 97530

== ENCOUNTER → 2024-03-29 | Outpatient (CLI) | payer MEDICARE, SELFPAY ==
--- NOTE | 2024-03-29 06:24 | MRI_ITS ---
EXAM: MR LUMBAR SPINE WITHOUT INTRAVENOUS CONTRAST CLINICAL INDICATION: pain TECHNIQUE: Multiplanar and multisequence MR images of the lumbar spine without intravenous contrast. COMPARISON: No relevant prior studies available. FINDINGS: VERTEBRAE: Kyphosis of the thoracolumbar junction related to the L1 deformity. Lumbar lordosis otherwise maintained. Moderate chronic wedge compression deformity of the L1 vertebral body. Bony fusion of the anterior half of T12 and L1 vertebral bodies. Lumbar vertebral bodies are otherwise intact. No bone marrow edema. SPINAL CORD: Normal. Normal position and signal intensity of the conus medullaris. 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 SOFT TISSUES: Normal. DISCS/SPINAL CANAL/NEURAL FORAMINA: L1-L2: Mild disc space narrowing. No disc herniation. No significant narrowing of the spinal canal and neuroforamina. L2-L3: Mild disc space narrowing. Right posterior lateral disc protrusion causes narrowing of the right neural foramen. No significant compression of the spinal canal or left neural foramen. L3-L4: Moderate disc space narrowing. Mild broad-based disc protrusion, ligamentous hypertrophy and facet arthropathy results in severe right and moderate left neural foraminal narrowing and mild spinal stenosis. L4-L5: Mild disc space narrowing. Broad-based disc protrusion, ligamentous hypertrophy and facet arthropathy results in moderate spinal stenosis and moderate bilateral neural foraminal narrowing. L5-S1: Intact intervertebral disc. Mild left posterior lateral disc protrusion causes mild narrowing of the neural foramen. Normal caliber spinal canal and right neural foramen. Synovial cyst of the left facet joint measuring 1 cm diameter causes narrowing of the left lateral recess. MRI/Spine Lumbar (Routine) IMPRESSION: 1. Moderate spinal stenosis at L4-5 related to disc protrusion, ligamentous hypertrophy and facet arthropathy. 2. Multilevel neural foraminal stenoses as described above. 3. Narrowing of the left L5-S1 lateral recess related to adjacent synovial cyst of the facet joint. Electronically Signed: Juan Pablo Hernandez MD at 13:27 EDT ,
== END | disposition home or self-care (01) ==
LOC: MRI 06:20
PROVIDERS: PCP Internal Medicine; Referring Provider Orthopaedic Surgery; Visit Provider Orthopaedic Surgery
DX: M51.16 Intervertebral disc disorders with radiculopathy, lumbar region (principal)
CPT/HCPCS: 72148

== ENCOUNTER 2025-04-23 16:51 | Observation (INO) | payer MEDICARE, SELFPAY ==
[2025-04-23] VITALS (10 sets, daily range): BP systolic 128–155; BP diastolic 80–97; PULSE 62–88; RESP 12–22; TEMP 36.6–37.1; O2SAT 97–100; BMI 26.6; BMI 25.9
--- NOTE | 2025-04-23 16:57 | CT_ITS ---
PROCEDURE: STROKE BRAIN/HEAD WITHOUT CONT 04/23/2025 REASON FOR EXAM: NEURO DEFICIT, ACUTE, STROKE SUSPECTED TECHNIQUE: STROKE BRAIN/HEAD WITHOUT CONT Coronal and Sagittal reconstruction series were provided. One or more dose reduction techniques were used (e.g., Automated exposure control, adjustment of the mA and/or kV according to patient size, use of iterative reconstruction technique. RADIATION DOSE SUMMARY: CTDlvol: 44.99 mGy DLP: 779.24 mGycm COMPARISON: None. FINDINGS: Mild global parenchymal atrophy. Periventricular white matter hypodensity likely representing mild chronic microvascular ischemia. Right centrum semiovale slightly more pronounced hypodensity favored to represent additional chronic microvascular ischemia. CT/STROKE Brain/Head without Cont IMPRESSION: Slightly pronounced right centrum semiovale hypodensity favored to represent ch ronic microvascular ischemia. MRI is recommended to exclude acute infarction. No other acute intracranial abnormalities. Critical results were communicated to Dr. Price at 5:30 p.m.. Reading Location: [id number]
--- NOTE | 2025-04-23 16:57 | EKG12_ITS ---
Test Reason : STROKE TEAM Blood Pressure : */* mmHG Vent. Rate : 69 BPM Atrial Rate : 69 BPM P-R Int : 178 ms QRS Dur : 92 ms QT Int : 396 ms P-R-T Axes : -6 17 26 degrees QTcB Int : 424 ms Normal sinus rhythm Normal ECG Confirmed by RASHAUN STEVEN, RIGO ([id number]), publishing editor STEPHAN PHILLIPS ([id number]) on 04/24/2025 10:52:44 AM Referred By: Confirmed By: RIGO RODNEY MD
--- NOTE | 2025-04-23 16:57 | CT_ITS ---
PROCEDURE: STROKE CTA HEAD AND NECK W/CON 04/23/2025 REASON FOR EXAM: NEURO DEFICIT, ACUTE, STROKE SUSPECTED TECHNIQUE: STROKE CTA HEAD AND NECK W/CON Multiplanar Sagittal and Coronal images were obtained. CONTRAST: Isovue 370 VOLUME: 100 mL One or more dose reduction techniques were used (e.g., Automated exposure control, adjustment of the mA and/or kV according to patient size, use of iterative reconstruction technique). RADIATION DOSE SUMMARY: CTDlvol: 20.76+ 16.65 mGy DLP: 604.70 mGycm COMPARISON: None. FINDINGS: The aortic arch is patent. The common carotid arteries are patent without evidence of stenosis or injury. Atherosclerosis of the bilateral carotid bulb/proximal internal carotid arteries without hemodynamically significant stenosis. The cervical vertebral arteries are widely patent without evidence of stenosis or injury. Atherosclerosis of the carotid siphons without hemodynamically significant stenosis. The anterior cerebral, anterior communicating, middle cerebral, and posterior cerebral arteries are patent. No evidence of significant aneurysm. The [id number] is intact. The vertebrobasilar system is patent. The lung apices are clear. CT/STROKE CTA Head AND Neck W/Con IMPRESSION: No acute arterial abnormality of the head or neck. Reading Location: [id number]
[2025-04-23 17:11] LABS: Bedside Glucose 98 mg/dL (74-106)
[2025-04-23 17:15] LABS: Absolute Lymphocyte Count 3.28 X10^3/uL (0.83-4.51); Absolute Neutrophil Count 3.7 X10^3/uL (2.0-7.7); Basophil# 0.06 X10^3/uL; Basophil% 0.8 % (0-1); Eosinophil# 0.13 X10^3/uL; Eosinophils% 1.6 % (0-5); Hematocrit 35.3 % (37-47); Hemoglobin 12.5 g/dL (12.0-15.0); Lymphocyte # 3.28 X10^3/ul (0.83-4.51); Lymphocyte % 41.3 % (19-41); Mean Corp Hgb Conc 35.4 g/dL (32-36); Mean Corpuscular Hgb 33.2 pg (27.0-32.0); Mean Corpuscular Volume 93.9 fL (81-99); Mean Platelet Vol. 9.8 fl (6.2-12.0); Monocyte# 0.78 X10^3/uL; Monocyte% 9.8 % (0-10); NRBC Flagged by Analyzer 0 % (0-5); Neutrophil # 3.69 X10^3/uL (2.7-7.7); Neutrophil % 46.4 % (47-70); Platelet Count 267 K/mm3 (150-450); RBC Distribution Width CV 12.6 % (11.6-14.6); RBC Distribution Width SD 43.6 fl (35.1-43.9); Red Blood Count 3.76 M/mm3 (4.2-5.4)
--- NOTE | 2025-04-23 17:16 | ED.VIS.STROK ---
HPI History of Present Illness Chief Complaint: Stroke Alert Informant: patient [facility] Medical History Loss of hearing Wears glasses Alcohol use Thyroid disease Arthritis Injury of back Injury of head and neck Gastric reflux RAD (reactive airway disease) Former smoker Leg cramps History of pain when walking History of stress test Hypertension History of Mohs micrographic surgery for skin cancer Hx of retained foreign body fully removed History of reactive airway disease Chondromalacia patellae, right knee Home Medications ?Medication ?Instructions ?Recorded ?Last Taken ?Type cholecalciferol (vitamin D3) 50 2,000 unit PO DAILY 06/19/14 Unknown History mcg (2,000 unit) tablet loratadine 10 mg tablet 10 mg PO DAILY 06/19/14 Unknown History multivitamin with folic acid 400 1 tab PO DAILY 06/19/14 Unknown History mcg tablet triamterene 37.5 1 tab PO DAILY 06/19/14 Unknown History mg-hydrochlorothiazide 25 mg tablet calcium carbonate 600 mg PO DAILY 03/30/17 Unknown History omeprazole 20 mg capsule,delayed 20 mg PO DAILY 03/13/20 04/22/21 03:00 History release 20 MG Elderberry Syrup 10 ml PO/SL DAILY 04/08/21 Unknown History ibuprofen 200 mg tablet (Advil) 200 mg PO Q6H PRN 06/04/21 Unknown History levothyroxine 112 mcg tablet 112 mcg PO QDAY 02/02/24 Unknown History (Synthroid) amlodipine 2.5 mg tablet 2.5 mg PO QDAY 03/15/24 Unknown History diazepam 2 mg tablet (Valium) 4 mg (2 x 2 mg) PO QHS PRN anxiety 03/15/24 Unknown Rx #2 tabs celecoxib 200 mg capsule 200 mg PO DAILY 04/23/25 Unknown History Allergy/AdvReac Type Severity Reaction Status Date / Time triamcinolone acetonide Allergy Hives Verified 04/23/25 17:06 (From Kenalog) hydrocodone AdvReac Vomiting Verified 04/23/25 17:06 lansoprazole (From Prevacid) AdvReac Nausea/Vom/ Verified 04/23/25 17:06 Diarrhea oxycodone HCl (From Percocet) AdvReac Nausea/Vom/ Verified 04/23/25 17:06 Diarrhea Surgical History H/O rotator cuff surgery History of esophagogastroduodenoscopy (EGD) Hx of colonoscopy Hx of arthroscopy of right knee Hx of total knee arthroplasty Hx of arthroscopy of left knee Hx of dilation and curettage History of carpal tunnel surgery of left wrist H/O elbow surgery History of carpal tunnel surgery Social History Smoking Status: Former smoker EXAM Physical Exam Const Vital Signs: 04/23/25 16:57 04/23/25 17:03 04/23/25 17:11 Temperature 98 F Temperature Source Oral Pulse Rate 82 87 Respiratory Rate 16 22 H Blood Pressure 149/82 H 149/82 H Blood Pressure Mean 104 104 Pulse Ox 99 99 Oxygen Delivery Method Room Air Room Air Room Air MDM MDM MDM Narrative Medical decision making narrative: Differential diagnosis includes stroke, TIA, electrolyte abnormality, pneumonia, bronchitis, cardiac dysrhythmia, cardiac ischemia, paresthesias, and anxiety. Stroke alert was called from triage. Stroke alert order set was used. CT scan of the brain will be obtained to assess for intracranial bleeding and stroke. CTA of the head and neck will be obtained to assess for large vessel occlusion and carotid stenosis. Chest x-ray will be obtained to assess for pneumonia or bronchitis. EKG will be obtained to assess for cardiac dysrhythmia and cardiac ischemia. CBC will be obtained to assess for leukocytosis and anemia. Basic metabolic profile will be obtained to assess for electrolyte abnormality and renal function. PT with INR and PTT will be obtained to assess for coagulopathy. High-sensitivity troponin will be obtained to assess for cardiac ischemia. 2-hour repeat high-sensitivity troponin will be obtained to assess for ongoing cardiac ischemia. Lab Data Labs: Laboratory Results - last 24 hr 04/23/25 16:53 POC Glucose 98 Radiography Chest X-Ray - ED: 1 View, Read by ED Physician, Read by Radiologist and No Acute Disease Diagnostic Testing: Portable 1 view chest x-ray was obtained. On my independent interpretation, lung easley are clear. There is normal cardiac silhouette. Bony thorax is normal. There is no acute process noted. Radiologist also interpreted the x-ray and agrees. EKG Initial EKG: Attestation: I personally reviewed and interpreted this EKG as follows: Interpretation: Sinus Rhythm (69) and No Acute Injury Pattern Comments: EKG was obtained. On my independent interpretation, it showed a normal sinus rhythm with a rate of 69. AR interval, QRS interval, and QTc intervals were all normal. [place] was normal. There are no acute ST or T wave changes. Prior EKG tracings: available for review Prior: Unchanged (06/11/2015) Management Discussion w/another healthcare provider: Hospitalist, [employer] Inspector and Radiologist Treatment and Re-Evaluation Narrative: Patient was evaluated by stroke neurologist. He recommended starting the patient on Plavix and a statin. This was ordered. Case will be discussed with the hospitalist for admission. Discharge Plan Triage Chief Complaint: Stroke Alert ED Provider: Antony Francisco Dx/Rx/DC Orders Clinical Impression: TIA (transient ischemic attack), Arm paresthesia, left, Left leg paresthesias Prescriptions: No Action omeprazole 20 mg capsule,delayed release(DR/EC) 20 mg PO DAILY ibuprofen [Advil] 200 mg tablet 200 mg PO Q6H PRN levothyroxine [Synthroid] 112 mcg tablet 112 mcg PO QDAY amlodipine 2.5 mg tablet 2.5 mg PO QDAY diazepam [Valium] 2 mg tablet 4 mg PO QHS PRN (Reason: anxiety) Qty: 2 0RF Rx Instructions: Take 2 tabs 30 minutes prior to MRI for anxiety and claustrophobia meloxicam 15 mg tablet 15 mg PO DAILY Qty: 30 0RF Rx Instructions: Do not take in conjunction with ibuprofen or other NSAID. Tylenol is okay. Further refills from PCP. triamterene-hydrochlorothiazid 1 EACH tablet 1 tab PO DAILY Patient Comments: blood pressure loratadine 10 MG tablet 10 mg PO DAILY Patient Comments: allergies cholecalciferol (vitamin D3) 2,000 UNIT tablet 2,000 unit PO DAILY Patient Comments: supplement multivitamin with folic acid 1 TABLET tablet 1 tab PO DAILY Patient Comments: supplement levothyroxine 125 mcg tablet 112 mcg PO DAILY Patient Comments: thyroid, doesn't take on Wednesday calcium carbonate 600 MG tablet 600 mg PO DAILY Elderberry Syrup 10 ml PO/SL DAILY Primary Care Provider: Irena Juarez Referrals: Irena Juarez MD [Primary Care Provider] - Print Language: Urdu Disposition Disposition: Acute Care Hospital [facility]
--- NOTE | 2025-04-23 17:28 | RAD_ITS ---
PROCEDURE: CHEST 1 VIEW 04/23/2025 REASON FOR EXAM: NEURO DEFICIT, ACUTE, STROKE SUSPECTED TECHNIQUE: Frontal view of the chest. COMPARISON: None FINDINGS: No focal consolidations. Bibasilar subsegmental atelectasis. No pleural effusion or pneumothorax. Cardiac silhouette is within normal limits. No acute fractures. RAD/Chest 1 View IMPRESSION: No focal consolidations. Reading Location: [id number]
[2025-04-23 17:30] LABS: Prothrombin Time (Protime)PT. 12.9 SECONDS (11.7-14.9)
[2025-04-23 17:31] LABS: Anion Gap 14 (5-15); BUN 21 mg/dL (4-19); BUN/Creat Ratio 27.5 RATIO (10-20); Calcium,Total 9.6 mg/dL (7.6-11.0); Carbon Dioxide 24.5 mmol/L (21.0-32.0); Chloride 97 mmol/L (98-108); Creatinine, Serum 0.77 mg/dL (0.70-1.20); EST Glomerular Filtration Rate 80 (>60); Estimated Creatinine Clearance 59.73 ml/min (50-250); Glucose 94 mg/dL (70-99); Partial Thromboplast Time 26.6 Seconds (24.1-36.2); Potassium 3.4 mmol/L (3.3-5.1); Sodium Level 135 mmol/L (133-145); Troponin T High Sensitivity 8 ng/L (<=14)
--- NOTE | 2025-04-23 18:22 | PCM.HP.STD ---
HPI - General General Date of Admission: 04/23/25 Date of Service: 04/23/25 Chief Complaint: Strokelike symptoms HPI Narrative BIA SPRGAUE, is a 75 F who presented to [facility] ED on 04/23/2025 with strokelike symptoms. Patient lives at home with her friend, has fairly good functional status at baseline. Presented with acute left-sided numbness/tingling in her left arm, left leg and left side of her face. Stroke alert called in ED triage. NIHSS score of 1. CT brain with slightly pronounced right centrum semiovale hypodensity likely representing chronic microvascular ischemia, otherwise nonacute. CTA head/neck unremarkable. Symptoms resolved in the ED. Teleneurology evaluated and suspected TIA, and recommended admission for further evaluation. Hospitalist was then contacted for admission. I saw the patient at bedside in the ED, friend was present. Patient was sitting up comfortably in bed, conversing normally, in no acute distress. Had never had symptoms like her stroke-like symptoms this morning. Her friend noted that patient was out doing gardening yesterday and has been doing well in general recently. Has history of low back pain and recently received a pain injection and has done very well with this. She denies any acute concerns currently. Will be admitted for further management. [facility] Medical History Loss of hearing Wears glasses Alcohol use Thyroid disease Arthritis Injury of back Injury of head and neck Gastric reflux RAD (reactive airway disease) Former smoker Leg cramps History of pain when walking History of stress test Hypertension History of Mohs micrographic surgery for skin cancer Hx of retained foreign body fully removed History of reactive airway disease Chondromalacia patellae, right knee Home Medications ?Medication ?Instructions ?Recorded ?Last Taken ?Type cholecalciferol (vitamin D3) 50 2,000 unit PO DAILY 06/19/14 Unknown History mcg (2,000 unit) tablet loratadine 10 mg tablet 10 mg PO DAILY 06/19/14 Unknown History multivitamin with folic acid 400 1 tab PO DAILY 06/19/14 Unknown History mcg tablet triamterene 37.5 1 tab PO DAILY 06/19/14 Unknown History mg-hydrochlorothiazide 25 mg tablet calcium carbonate 600 mg PO DAILY 03/30/17 Unknown History omeprazole 20 mg capsule,delayed 20 mg PO DAILY 03/13/20 04/22/21 03:00 History release 20 MG Elderberry Syrup 10 ml PO/SL DAILY 04/08/21 Unknown History ibuprofen 200 mg tablet (Advil) 200 mg PO Q6H PRN fever or pain 06/04/21 Unknown History levothyroxine 112 mcg tablet 112 mcg PO QDAY 02/02/24 Unknown History (Synthroid) amlodipine 2.5 mg tablet 2.5 mg PO QDAY 03/15/24 Unknown History diazepam 2 mg tablet (Valium) 4 mg (2 x 2 mg) PO QHS PRN anxiety 03/15/24 Unknown Rx #2 tabs celecoxib 200 mg capsule 200 mg PO DAILY 04/23/25 Unknown History Allergy/AdvReac Type Severity Reaction Status Date / Time triamcinolone acetonide Allergy Hives Verified 04/23/25 17:06 (From Kenalog) hydrocodone AdvReac Vomiting Verified 04/23/25 17:06 lansoprazole (From Prevacid) AdvReac Nausea/Vom/ Verified 04/23/25 17:06 Diarrhea oxycodone HCl (From Percocet) AdvReac Nausea/Vom/ Verified 04/23/25 17:06 Diarrhea Surgical History H/O rotator cuff surgery History of esophagogastroduodenoscopy (EGD) Hx of colonoscopy Hx of arthroscopy of right knee Hx of total knee arthroplasty Hx of arthroscopy of left knee Hx of dilation and curettage History of carpal tunnel surgery of left wrist H/O elbow surgery History of carpal tunnel surgery Social History Smoking Status: Former smoker ROS Constitutional Constitutional: Denies chills, fatigue, fever(s) or weakness Eyes Eyes: Denies change in vision Cardiovascular Cardiovascular: Denies chest pain Respiratory/Chest Respiratory/Chest: Denies cough or shortness of breath at rest Gastrointestinal Gastrointestinal: Denies abdominal pain Genitourinary Genitourinary: Denies dysuria Musculoskeletal Musculoskeletal: Denies arthralgias or myalgias Neurologic Neurologic: Reports numbness and tingling; Denies abnormal gait, abnormal speech, confusion, disequilibrium, dizziness, focal weakness or headache(s) Vital Signs Vital Signs Vital Signs: 04/23/25 16:57 04/23/25 17:03 04/23/25 17:11 Temperature 98 F Temperature Source Oral Pulse Rate 82 87 Respiratory Rate 16 22 H Blood Pressure 149/82 H 149/82 H Blood Pressure Mean 104 104 Pulse Ox 99 99 Oxygen Delivery Method Room Air Room Air Room Air 04/23/25 17:27 04/23/25 17:30 04/23/25 18:00 Temperature Temperature Source Pulse Rate 70 73 75 Respiratory Rate 22 H 20 H 16 Blood Pressure 152/97 H 143/87 H 141/82 H Blood Pressure Mean 115 105 101 Pulse Ox 100 100 98 Oxygen Delivery Method Room Air Room Air Room Air Weight Weight: 72.6 kg Body Mass Index (BMI) 26.6 Physical Exam Const alert, oriented x3, no apparent distress, average body habitus, healthy appearing and well nourished Constitutional Narrative: Pleasant elderly female, sitting back comfortably in bed, conversing normally, in no acute distress. General Appearance: cooperative, comfortable, well kempt and well developed HEENT normocephalic, head/scalp atraumatic, hearing grossly normal bilaterally, nasal mucous membranes and turbinates normal and moist oral mucous membranes Eyes PERRL, EOMs intact bilaterally and conjunctivae normal Neck full ROM Chest inspection of chest normal Resp normal respiratory effort, normal air movement, no use of accessory muscles and clear to auscultation bilaterally Cardio regular rate, regular rhythm, no murmurs and peripheral pulses 2+ throughout GI normal to inspection, nondistended, normoactive bowel sounds, soft to palpation, non-tender and non-distended Back/Spine normal ROM Extremity normal to inspection, full ROM and no pedal edema Skin no rashes or lesions noted Neuro oriented x3, CN's II-XII intact bilaterally, moves all extremities and no focal motor deficits Speech: speech normal Motor Exam: strength 5/5 throughout Psych mental status grossly normal Results Lab / Micro Data 04/23/25 16:55 04/23/25 16:55 Labs: Laboratory Results - last 24 hr 04/23/25 16:53: POC Glucose 98 04/23/25 16:55: WBC 8.0, RBC 3.76 L, Hgb 12.5, Hct 35.3 L, MCV 93.9, MCH 33.2 H, MCHC 35.4, RDW Std Deviation 43.6, RDW Coeff of Gina 12.6, Plt Count 267, MPV 9.8, Immature Gran % (Auto) 0.100, Neut % (Auto) 46.4 L, Lymph % (Auto) 41.3 H, Hand % (Auto) 9.8, Eos % (Auto) 1.6, Baso % (Auto) 0.8, Absolute Neuts (auto) 3.7, Absolute Lymphs (auto) 3.28, Nucleated RBC % 0, PT 12.9, INR 1.0, APTT 26.6, Sodium 135, Potassium 3.4, Chloride 97 L, Carbon Dioxide 24.5, Anion Gap 14, BUN 21 H, Creatinine 0.77, Estim Creat Clear Calc 59.73, Est GFR (MDRD) Non-Af 80, BUN/Creatinine Ratio 27.5 H, Glucose 94, Calcium 9.6, Troponin T High Sens 8 Imaging Radiology Impression Brain CT 04/23/25 16:57 IMPRESSION: Slightly pronounced right centrum semiovale hypodensity favored to represent chronic microvascular ischemia. MRI is recommended to exclude acute infarction. No other acute intracranial abnormalities. Critical results were communicated to Dr. Price at 5:30 p.m.. Reading Location: [id number] Head/Neck CTA 04/23/25 16:57 IMPRESSION: No acute arterial abnormality of the head or neck. Reading Location: [id number] Chest X-Ray 04/23/25 17:28 IMPRESSION: No focal consolidations. Reading Location: [facility] Assessment & Plan Assessment/Plan (1) Stroke-like symptoms: PLAN: Plan Patient is a 75-year-old female who presented [facility] ED on 04/23/2025 with strokelike symptoms. 1. Strokelike symptoms, CVA rule out ? Admit under observation status to PCU. Neurology consulted. Presented with left-sided numbness/tingling. NIHSS score of 1. CT brain showed a slightly pronounced right centrum semiovale hypodensity likely due to chronic microvascular ischemia, though acute infarction cannot be excluded. CTA head/neck negative. MRI brain and echo with bubble study ordered. Further orders placed per stroke protocol order set. Lipid panel, A1c and TSH ordered. PT/OT/case management consulted. Chronic medical conditions: ? Hypertension: Holding home amlodipine and triamterene?hydrochlorothiazide for permissive hypertension. ? Hypothyroidism: TSH ordered as above. Continue home Synthroid. ? GERD: Continue home PPI. ? Chronic low back pain: Reportedly had a pain injection done recently with good improvement in symptoms and functional status. Holding home Celebrex for now. No inpatient needs, continue outpatient follow-up. DVT prophylaxis: SCDs CODE STATUS: Full code, verified Expected disposition: Home, 1 to 2 days Total clinical time spent by myself addressing the patient's medical issues, reviewing all the data, and collaborating with patient's care team: 55 minutes. Charges/Coding Visit Charges Inpatient E&M: 12909 Init Hosp L2
[2025-04-23] MEDS: Clopidogrel Bisulfate 75 MG Tablet PO (18:33)
--- NOTE | 2025-04-23 18:45 | ECHOD_ITS ---
Reason For Study Reason For Study: TIA/CVA Procedure This was a 2D Doppler, Color Flow transthoracic echocardiogram. Exam performed portable in patient room. Left Ventricle Normal LV size. The left ventricular ejection fraction is 60 %. No regional wall motion abnormalities noted. Right Ventricle Normal RV size. Normal systolic function. Atria Normal left atrium. Normal right atrium. Mitral Valve Normal mitral valve. Mild (1+) eccentric mitral valve insufficiency. Tricuspid Valve Normal tricuspid valve. Aortic Valve Trisinus/trileaflet aortic valve. Pulmonic Valve Normal pulmonic valve. Great Vessels Normal aortic root. The pulmonary artery is normal size. Inferior vena cava collapse with respiration. Pericardium/Pleural No pericardial effusion. MMode/2D Measurements & Calculations LVIDd: 3.6 cm IVSd: 0.79 cm LVOT diam: 2.0 cm LVIDs: 2.3 cm LVPWd: 0.96 cm LVOT area: 3.1 cm2 RVDd: 3.6 cm FS: 36.2 % asc Aorta Diam: 3.9 cm LAV(MOD-sp2): 33.7 ml LVAd ap4: 22.2 cm2 LVLd ap4: 7.4 cm EDV(MOD-sp4): 54.0 ml EDV(sp4-el): 56.5 ml LVAs ap4: 10.9 cm2 LVLs ap4: 6.1 cm ESV(MOD-sp4): 16.2 ml ESV(sp4-el): 16.4 ml EF(MOD-sp4): 70.0 % EF(sp4-el): 71.0 % LVAd ap2: 19.8 cm2 SV(MOD-sp4): 37.8 ml SV(MOD-sp2): 27.3 ml LVLd ap2: 7.2 cm SI(MOD-sp4): 23.8 ml/m2 SI(MOD-sp2): 17.2 ml/m2 EDV(MOD-sp2): 44.7 ml EDV(sp2-el): 46.4 ml LVAs ap2: 11.2 cm2 LVLs ap2: 6.1 cm ESV(MOD-sp2): 17.4 ml ESV(sp2-el): 17.3 ml EF(MOD-sp2): 61.1 % SV(sp4-el): 40.1 ml Ao sinus diam: 3.[address] Junction: 3.0 cm LA dimension(2D): 3.2 cm LA A4 area: 10.4 cm2 RA A4 area: 8.7 cm2 TAPSE: 2.0 cm Time Measurements MV dec time: 0.24 sec Doppler Measurements & Calculations MV E max rafael: 89.2 cm/sec Lat Peak E' Rafael: 9.9 cm/sec Med Peak E' Rafael: 8.8 cm/sec MV A max rafael: 98.9 cm/sec E/E' lat: 9.0 E/E' med: 10.2 MV E/A: 0.90 MV dec slope: 374.4 cm/sec2 Ao V2 max: 150.3 cm/sec LV V1 max: 123.7 cm/sec Ao max P.0 mmHg LV V1 max P.1 mmHg Ao V2 mean: 101.8 cm/sec LV V1 mean P.2 mmHg Ao mean P.8 mmHg LV V1 mean: 83.1 cm/sec Ao V2 VTI: 33.4 cm LV V1 VTI: 27.3 cm AV (velocity ratio): 0.82 TIERRA(I,D): 2.5 cm2 TIERRA(V,D): 2.5 cm2 SV(LVOT): 84.1 ml PA V2 max: 88.6 cm/sec TR max rafael: 194.2 cm/sec TR max P.1 mmHg ECHO/Echo Complete Interpretation Summary Normal LV size. The left ventricular ejection fraction is 60 %. Mild (1+) eccentric mitral valve insufficiency. Structurally normal valves. Ordering Physician: Jeff Hubbard Referring Physician: Irena Juarez M.D. Performed By: Kimi Santamaria RDCS
[2025-04-23 19:53] LABS: Troponin T High Sens 2 HR 9 ng/L (<=14)
[2025-04-23 19:55] LABS: Hemoglobin A1c 5.6 % (<=5.6)
[2025-04-23] MEDS: 0.9% Saline Lock 10 ML Syringe IV (20:00)
[2025-04-23 21:55] LABS: Troponin T High Sens 4 HR 10 ng/L (<=14)
[2025-04-23] MEDS: Levothyroxine 112 MCG Tablet PO (22:28)
[2025-04-24 02:25] VITALS: BP 128/79; PULSE 63; RESP 16; TEMP 36.6; O2SAT 98
[2025-04-24 05:35] VITALS: BP 135/85; PULSE 74; RESP 15; TEMP 36.5; O2SAT 98
[2025-04-24] MEDS: Pantoprazole Sodium 20 MG Tablet PO (05:38)
[2025-04-24 06:56] LABS: Hematocrit 34.9 % (37-47); Hemoglobin 12.3 g/dL (12.0-15.0); Mean Corp Hgb Conc 35.2 g/dL (32-36); Mean Corpuscular Volume 93.6 fL (81-99); Platelet Count 270 K/mm3 (150-450); RBC Distribution Width CV 12.7 % (11.6-14.6); RBC Distribution Width SD 43.8 fl (35.1-43.9); Red Blood Count 3.73 M/mm3 (4.2-5.4); White Blood Count 5.2 K/mm3 (4.4-11.0)
[2025-04-24 07:45] LABS: Anion Gap 12 (5-15); BUN 14 mg/dL (4-19); BUN/Creat Ratio 21.5 RATIO (10-20); Calcium,Total 9.3 mg/dL (7.6-11.0); Carbon Dioxide 25.5 mmol/L (21.0-32.0); Chloride 100 mmol/L (98-108); Cholesterol 254 mg/dL (<=200); Creatinine, Serum 0.66 mg/dL (0.70-1.20); EST Glomerular Filtration Rate 91 (>60); Estimated Creatinine Clearance 58.97 ml/min (50-250); Glucose 90 mg/dL (70-99); High Density Lipoprotein 65 mg/dL; Low Density Lipoprotein Calc. 163 mg/dL; Potassium 3.7 mmol/L (3.3-5.1); Sodium Level 137 mmol/L (133-145); Triglycerides 128 mg/dL; Very Low Density Lipoprotein 26 mg/dL (5-40)
[2025-04-24] MEDS: LORazepam 0.5 MG Tablet PO (09:00)
[2025-04-24] MEDS: Cholecalciferol (VIT D3) 25 MCG TABLET (1,000 UNITS) 50 MCG PO (09:01)
[2025-04-24] MEDS: Multivitamins,Therapeutic Tablet 1 TABLET PO (09:01)
[2025-04-24] MEDS: Loratadine 10 MG Tablet PO (09:01)
[2025-04-24] MEDS: Clopidogrel Bisulfate 75 MG Tablet PO (09:01)
[2025-04-24 09:08] VITALS: BP 137/88; PULSE 82; RESP 15; TEMP 36.3; O2SAT 96
--- NOTE | 2025-04-24 09:50 | MRI_ITS ---
EXAM: BRAIN WITHOUT CONTRAST CLINICAL HISTORY: EVAL FOR CVA left-sided numbness, tingling in the arm, face, and leg COMPARISON: None. TECHNIQUE: Multiplanar, multisequence MR images of the brain were obtained without gadolinium contrast material. FINDINGS: No intracranial hemorrhage, mass, mass effect, midline shift or pathologic extra- axial fluid collection. No hydrocephalus. There is abnormal increased T2 and FLAIR signal throughout the deep white matter consistent with moderate to severe chronic small-vessel ischemic change, without associated acute restricted diffusion. No gradient signal blooming artifacts are identified. No cerebellar tonsillar ectopia. No sellar/suprasellar signal abnormalities. The ocular globes and intraorbital soft tissues are symmetrically unremarkable. Paranasal sinuses are essentially clear. MRI/Brain without Contrast IMPRESSION: There is abnormal increased T2 and FLAIR signal throughout the deep white matte r consistent with moderate to severe chronic small-vessel ischemic change, without associated acute restricted diffusion. Reading Location: [facility]
--- NOTE | 2025-04-24 11:32 | CASEMGMT ---
JOSEPH SOLOMON NOTE: RN CM to room. Pt sitting up in recliner chair in room. Introduced self and role. Pt has been getting up ad tara in room w/out difficulty. She lives w/a friend, Kamla, who will take her home @ tn. Pt reports being independent. She denies having any discharge needs or concerns. Trace SCANLON RN CN
--- NOTE | 2025-04-24 12:13 | PCM.DC ---
Discharge Instructions Diet Discharge Diet: Low fat / Low cholesterol DC O2, CPAP, BIPAP needs Home O2 Discharge instructions: No Dressing / Incision Discharge Activity: Return to Normal Activity Dressing / Incision Call your doctor if you observe: Fever of 101 or Higher, Shortness of breath, Dizziness, Fainting spells, Swelling in the ankles, Chest pain and Increased palpitations (irregular heartbeat) Follow Up Care Test Results: Test results from this visit will be discussed in further detail at your follow-up appointment, if applicable. Discharge Plan Admission Admit Date/Time: 04/23/25 18:41 Attending Provider: Jim Durham Primary Care Provider: Irena Juarez Consulting Providers: David Gordon; Tracie Fields; Talia Luis; Jacqueline Hurtado; Becca Falcon; Yves Pulido; Kelsey Chen; Moisés Mcpherson; Mitchell Bruce; Pablo Wing; Cassidy Avendano; Carlos Blanc; Archana Smith; Faith Ramos; Justin Kam; Ronak Key; Man Pinzon; Jeff Shine; Leilani Nichols; Domenico Rivera; Jeff Hubbard Discharge Orders/Prescriptions Prescriptions: New atorvastatin 40 mg Tablet 40 mg PO QHS 30 Days Qty: 30 0RF clopidogrel 75 mg Tablet 75 mg PO DAILY 30 Days Qty: 30 0RF Continued omeprazole 20 mg capsule,delayed release(DR/EC) 20 mg PO DAILY ibuprofen [Advil] 200 mg tablet 200 mg PO Q6H PRN (Reason: fever or pain) levothyroxine [Synthroid] 112 mcg tablet 112 mcg PO QDAY Patient Comments: TAKES 112 MCG 6 DAYS A WEEK AND 56 MCG ONE DAY A WEEK amlodipine 2.5 mg tablet 2.5 mg PO QDAY diazepam [Valium] 2 mg tablet 4 mg PO QHS PRN (Reason: anxiety) Qty: 2 0RF Rx Instructions: Take 2 tabs 30 minutes prior to MRI for anxiety and claustrophobia triamterene-hydrochlorothiazid 1 EACH tablet 1 tab PO DAILY Patient Comments: blood pressure loratadine 10 MG tablet 10 mg PO DAILY Patient Comments: allergies cholecalciferol (vitamin D3) 2,000 UNIT tablet 2,000 unit PO DAILY Patient Comments: supplement multivitamin with folic acid 1 TABLET tablet 1 tab PO DAILY Patient Comments: supplement calcium carbonate 600 MG tablet 600 mg PO DAILY Elderberry Syrup 10 ml PO/SL DAILY celecoxib 200 mg capsule 200 mg PO DAILY Referrals / Follow Up: Irena Juarez MD [Primary Care Provider] - Within 1 Week Jason Russo MD [Non-Staff -Ordering Privileges] - Within 1 Month Disposition Disposition (needs filled in before D/C Order can be placed): Home, Self Care
--- NOTE | 2025-04-24 12:44 | CASEMGMT ---
SW did not complete a PHQ 9 as per physician patient did not have a Stroke. Mariama TANG
--- NOTE | 2025-04-24 14:54 | PHA.DC_ITS ---
Pharmacy [facility] Counseling Pharmacy Service has performed discharge medication reconciliation and counseling for this patient. 1. ATORVASTATIN 40MG PO QHS 2. CLOPIDOGREL 75MG PO DAILY The patient's discharge medication list was reviewed for discrepancies and discrepancies were resolved. The patient was counseled on the following discharge medications and changes in medications for homegoing were reviewed. The Reason for Use, instructions for use, and potential side effects were reviewed for all new medications. The patient's questions regarding all of their medications were answered. The patient was able to verbally demonstrate an understanding of their discharge medications. Medications at Discharge Home Medications cholecalciferol (vitamin D3) 50 mcg (2,000 unit) tablet 2,000 unit PO DAILY 06/19/14 loratadine 10 mg tablet 10 mg PO DAILY 06/19/14 multivitamin with folic acid 400 mcg tablet 1 tab PO DAILY 06/19/14 triamterene 37.5 mg-hydrochlorothiazide 25 mg tablet 1 tab PO DAILY 06/19/14 calcium carbonate 600 mg PO DAILY 03/30/17 omeprazole 20 mg capsule,delayed release 20 mg PO DAILY 03/13/20 Elderberry Syrup 10 ml PO/SL DAILY 04/08/21 ibuprofen 200 mg tablet (Advil) 200 mg PO Q6H PRN fever or pain 06/04/21 levothyroxine 112 mcg tablet (Synthroid) 112 mcg PO QDAY 02/02/24 amlodipine 2.5 mg tablet 2.5 mg PO QDAY 03/15/24 diazepam 2 mg tablet (Valium) 4 mg (2 x 2 mg) PO QHS PRN anxiety #2 tabs 03/15/24 celecoxib 200 mg capsule 200 mg PO DAILY 04/23/25 atorvastatin 40 mg tablet 40 mg PO QHS 30 days #30 tabs 04/24/25 clopidogrel 75 mg tablet 75 mg PO DAILY 30 days #30 tabs 04/24/25
[2025-04-24 15:06] VITALS: O2SAT 98
--- NOTE | 2025-04-24 15:28 | PCM.DC.SUM ---
Providers Date of Admission: 04/23/25 Primary Care Physician: Dr. Irena Juarez MD Consultations 04/23/25 19:24 Consult: Tele-Neurology Routine Consulting Provider: [facility] Reason for Consult: Acute Ischemic Stroke/TIA EMERGENT Consult: No MD Notified: Yes Date Notified: 04/23/25 Time Notified: 19:48 Method of Notification: ED Physician Initiated Nursing Unit Staff Notify [facility] of Tele-Neurology Consult: Yes Reason For Visit: STROKELIKE SYMPTOMS Diagnosis Discharge Diagnosis (1) Stroke-like symptoms: Status: Acute Code(s): R29.90 - Unspecified symptoms and signs involving the nervous system Medications at Discharge Home Medications cholecalciferol (vitamin D3) 50 mcg (2,000 unit) tablet 2,000 unit PO DAILY 06/19/14 loratadine 10 mg tablet 10 mg PO DAILY 06/19/14 multivitamin with folic acid 400 mcg tablet 1 tab PO DAILY 06/19/14 triamterene 37.5 mg-hydrochlorothiazide 25 mg tablet 1 tab PO DAILY 06/19/14 calcium carbonate 600 mg PO DAILY 03/30/17 omeprazole 20 mg capsule,delayed release 20 mg PO DAILY 03/13/20 Elderberry Syrup 10 ml PO/SL DAILY 04/08/21 ibuprofen 200 mg tablet (Advil) 200 mg PO Q6H PRN fever or pain 06/04/21 levothyroxine 112 mcg tablet (Synthroid) 112 mcg PO QDAY 02/02/24 amlodipine 2.5 mg tablet 2.5 mg PO QDAY 03/15/24 diazepam 2 mg tablet (Valium) 4 mg (2 x 2 mg) PO QHS PRN anxiety #2 tabs 03/15/24 celecoxib 200 mg capsule 200 mg PO DAILY 04/23/25 atorvastatin 40 mg tablet 40 mg PO QHS 30 days #30 tabs 04/24/25 clopidogrel 75 mg tablet 75 mg PO DAILY 30 days #30 tabs 04/24/25 Hospital Course Operations None Procedures 2-D Echocardiogram Summary of Care Provided Minutes Spent on Discharge: 35 Hospital Course: Per HPI: BIA SPRAGUE, is a 75 F who presented to [facility] ED on 04/23/2025 with strokelike symptoms. Patient lives at home with her friend, has fairly good functional status at baseline. Presented with acute left-sided numbness/tingling in her left arm, left leg and left side of her face. Stroke alert called in ED triage. NIHSS score of 1. CT brain with slightly pronounced right centrum semiovale hypodensity likely representing chronic microvascular ischemia, otherwise nonacute. CTA head/neck unremarkable. Symptoms resolved in the ED. Teleneurology evaluated and suspected TIA, and recommended admission for further evaluation. Hospitalist was then contacted for admission. I saw the patient at bedside in the ED, friend was present. Patient was sitting up comfortably in bed, conversing normally, in no acute distress. Had never had symptoms like her stroke-like symptoms this morning. Her friend noted that patient was out doing gardening yesterday and has been doing well in general recently. Has history of low back pain and recently received a pain injection and has done very well with this. She denies any acute concerns currently. Will be admitted for further management. Hospital Course: 1. TIA in the setting of previous ischemic changes?75-year-old female was outside gardening when she noticed her left hand became numb. Throughout the day she noticed that her left leg also became numb so she presented to the emergency room. CTA of the head and neck was unremarkable and MRI was negative for an acute stroke, however it did demonstrate moderate to severe chronic small vessel ischemic changes in the deep white matter. The patient did relate that she had a history of 3 significant concussions and we discussed that the presentation would not be like this after all this time. Despite the fact that she had a normal MRI given these previous changes, we will place her on Plavix as she has a contraindication to aspirin since she is on Celebrex and ibuprofen for chronic arthritis. Will also place her on a statin and have her follow-up with neurology as an outpatient. I recommended that she follow-up with her PCP in 3 to 5 days. I discussed with her the plan for discharge today she expressed understanding the risk and benefits of going home and would like to go home today. Of note the echocardiogram was unremarkable. 2. Essential hypertension, hyperlipidemia, hypothyroidism, GERD are all chronic medical conditions which complicate her care. Her home medications were continued where appropriate Physical Exam Narrative General: Alert, Oriented x3, Cooperative, No apparent distress HEENT: Atraumatic, PERRLA, EOMI, Normocephalic Oral: Moist Mucosa Neck: Supple, No JVD Lungs: Clear to auscultation, Normal air movement, No rhonchi, No wheeze, No rales Cardiovascular: Regular rate, Regular Rhythm, Normal S1, Normal S2, No murmurs Abdomen: Soft, Non Tender, Non-Distended, No Hepato-splenomegaly Extremities: No edema, Capillary Refill Less than 3 Seconds Skin: No rashes, No breakdown Musculoskeletal: No Tenderness to Palpation of Joints or Extremities Neurological: No focal neurological deficits, Motor Exam 5/5 strength throughout, Sensory exam intact to light touch and pain Psych/Mental Status: Normal Affect, Appropriate Weight / BMI Weight Weight: 155 lb 10.342 oz Body Mass Index (BMI) 25.9 ABG / Lab / Microbiology Data 04/24/25 06:30 04/24/25 06:30 Laboratory: Laboratory Results - last 24 hr 04/23/25 16:53: POC Glucose 98 04/23/25 16:55: WBC 8.0, RBC 3.76 L, Hgb 12.5, Hct 35.3 L, MCV 93.9, MCH 33.2 H, MCHC 35.4, RDW Std Deviation 43.6, RDW Coeff of Gina 12.6, Plt Count 267, MPV 9.8, Immature Gran % (Auto) 0.100, Neut % (Auto) 46.4 L, Lymph % (Auto) 41.3 H, Knott % (Auto) 9.8, Eos % (Auto) 1.6, Baso % (Auto) 0.8, Absolute Neuts (auto) 3.7, Absolute Lymphs (auto) 3.28, Nucleated RBC % 0, PT 12.9, INR 1.0, APTT 26.6, Sodium 135, Potassium 3.4, Chloride 97 L, Carbon Dioxide 24.5, Anion Gap 14, BUN 21 H, Creatinine 0.77, Estim Creat Clear Calc 59.73, Est GFR (MDRD) Non-Af 80, BUN/Creatinine Ratio 27.5 H, Glucose 94, Hemoglobin A1c 5.6, Calcium 9.6, Troponin T High Sens 8, TSH 3.690 04/23/25 19:00: Troponin T Hi Sens 2 Hr 9 04/23/25 21:16: Troponin T Hi Sens 4Hr 10 04/24/25 06:30: WBC 5.2, RBC 3.73 L, Hgb 12.3, Hct 34.9 L, MCV 93.6, MCH 33.0 H, MCHC 35.2, RDW Std Deviation 43.8, RDW Coeff of Gina 12.7, Plt Count 270, MPV 10.0, Sodium 137, Potassium 3.7, Chloride 100, Carbon Dioxide 25.5, Anion Gap 12, BUN 14, Creatinine 0.66 L, Estim Creat Clear Calc 58.97, Est GFR (MDRD) Non-Af 91, BUN/Creatinine Ratio 21.5 H, Glucose 90, Calcium 9.3, Triglycerides 128, Cholesterol 254 H, LDL Cholesterol, Calc 163, VLDL Cholesterol 26, HDL Cholesterol 65, Cholesterol/HDL Ratio 3.90 Radiography Diagnostic Testing: Radiology Impression Brain CT 04/23/25 16:57 IMPRESSION: Slightly pronounced right centrum semiovale hypodensity favored to represent chronic microvascular ischemia. MRI is recommended to exclude acute infarction. No other acute intracranial abnormalities. Critical results were communicated to Dr. Price at 5:30 p.m.. Reading Location: [place] [address] Head/Neck CTA 04/23/25 16:57 IMPRESSION: No acute arterial abnormality of the head or neck. Reading Location: [place] [address] Chest X-Ray 04/23/25 17:28 IMPRESSION: No focal consolidations. Reading Location: [facility] [address] Echocardiogram 04/23/25 18:45 Interpretation Summary Normal LV size. The left ventricular ejection fraction is 60 %. Mild (1+) eccentric mitral valve insufficiency. Structurally normal valves. Ordering Physician: Jeff Hubbard Referring Physician: Irena Juarez M.D. Performed By: Kimi Santamaria RDCS Brain MRI 04/24/25 09:50 IMPRESSION: There is abnormal increased T2 and FLAIR signal throughout the deep white matter consistent with moderate to severe chronic small-vessel ischemic change, without associated acute restricted diffusion. [facility] Instructions Discharge Diet: Low fat / Low cholesterol Call your doctor if you observe: Fever of 101 or Higher, Shortness of breath, Dizziness, Fainting spells, Swelling in the ankles, Chest pain and Increased palpitations (irregular heartbeat) DC O2, CPAP, BIPAP Needs Home O2 Discharge instructions: No Meaningful Use Info Meaningful Use Meaningful Use Diagnoses (Choose all that apply): None applicable Ischemic Stroke Statin Dosing Therapy Reference: STATIN DOSE THERAPY REFERENCE: * Patients > 75 years receive moderate or high dose statin therapy. * Patients 75 years or YOUNGER should receive HIGH intensity statin dose unless contraindicated. You will be required to document reason for non-treatment if statin daily dose does not meet guidelines. HIGH DOSE STATIN THERAPY DAILY Atorvastatin > than or = to 40 mg Rosuvastatin > than or = to 20 mg Amlodipine + Atorvastatin > than or = to 2.5/40 mg Ezetimibe + Simvastatin 10/80 mg Simvastatin 80mg Discharge Plan Admission Admit Date/Time: 04/23/25 18:41 Attending Provider: Jim Durham Primary Care Provider: Irena Juarez Consulting Providers: David Gordon; Tracie Fields; Talia Luis; Jacqueline Hurtado; Becca Falcon; Yves Pulido; Kelsey Chen; Moisés Mcpherson; Mitchell Bruce; Pablo Wing; Cassidy Avendano; Carlos Blanc; Archana Smith; Faith Ramos; Justin Kam; Ronak Key; Man Pinzon; Jeff Shine; Leilani Nichols; Domenico Rivera; Jeff Hubbard Discharge Orders/Prescriptions Prescriptions: New atorvastatin 40 mg Tablet 40 mg PO QHS 30 Days Qty: 30 0RF clopidogrel 75 mg Tablet 75 mg PO DAILY 30 Days Qty: 30 0RF Continued omeprazole 20 mg capsule,delayed release(DR/EC) 20 mg PO DAILY ibuprofen [Advil] 200 mg tablet 200 mg PO Q6H PRN (Reason: fever or pain) levothyroxine [Synthroid] 112 mcg tablet 112 mcg PO QDAY Patient Comments: TAKES 112 MCG 6 DAYS A WEEK AND 56 MCG ONE DAY A WEEK amlodipine 2.5 mg tablet 2.5 mg PO QDAY diazepam [Valium] 2 mg tablet 4 mg PO QHS PRN (Reason: anxiety) Qty: 2 0RF Rx Instructions: Take 2 tabs 30 minutes prior to MRI for anxiety and claustrophobia triamterene-hydrochlorothiazid 1 EACH tablet 1 tab PO DAILY Patient Comments: blood pressure loratadine 10 MG tablet 10 mg PO DAILY Patient Comments: allergies cholecalciferol (vitamin D3) 2,000 UNIT tablet 2,000 unit PO DAILY Patient Comments: supplement multivitamin with folic acid 1 TABLET tablet 1 tab PO DAILY Patient Comments: supplement calcium carbonate 600 MG tablet 600 mg PO DAILY Elderberry Syrup 10 ml PO/SL DAILY celecoxib 200 mg capsule 200 mg PO DAILY Referrals / Follow Up: Irena Juarez MD [Primary Care Provider] - Within 1 Week Jason Russo MD [Non-Staff -Ordering Privileges] - Within 1 Month Disposition Disposition (needs filled in before D/C Order can be placed): Home, Self Care Charges/Coding Visit Charges Inpatient E&M: 05340 Disch Hosp >30min
[2025-04-24 15:53] VITALS: BP 112/75; PULSE 74; RESP 17; TEMP 37.2; O2SAT 95
== END 2025-04-24 16:12 | disposition home or self-care (01) ==
LOC: ED 18:13 → PCU 19:10
PROVIDERS: Admitting Provider Hospitalist; Emergency Provider Emergency Medicine; PCP Internal Medicine; Visit Provider Family Medicine
DX: G45.9 Transient cerebral ischemic attack, unspecified (principal); M19.90 Unspecified osteoarthritis, unspecified site; Z87.891 Personal history of nicotine dependence; K21.9 Gastro-esophageal reflux disease without esophagitis; I10 Essential (primary) hypertension; E03.9 Hypothyroidism, unspecified; R20.2 Paresthesia of skin; E78.5 Hyperlipidemia, unspecified; Z79.899 Other long term (current) drug therapy; Z79.890 Hormone replacement therapy; R20.0 Anesthesia of skin; G89.29 Other chronic pain
CPT/HCPCS: 36415; 70450; 70496; 70498; 70551; 71045; 80048; 80061; 82962; 83036; 84443; 84484; 85025; 85027; 85610; 85730; 93005; 93306; 94668; 94762; 97802; 99221; 99285; Q9967; A4216; G0378